=== PATIENT | male | born 1980 | race Caucasian/White ===

== ENCOUNTER 2023-10-01 08:20 | Outpatient (CLI) | payer OTHER, SELFPAY | END 2023-10-01 08:21 | disposition home or self-care (01) | LOC: NFLDREF 10-02 07:09 | PROVIDERS: PCP Family Medicine; Referring Provider Family Medicine; Visit Provider Family Medicine | DX: Z13.220 Encounter for screening for lipoid disorders (principal); Z13.1 Encounter for screening for diabetes mellitus | CPT/HCPCS: 80061; 82947 ==